=== PATIENT | male | born 1985 | race Caucasian/White ===

== ENCOUNTER 2020-03-21 09:22 | Emergency (ER) | payer SELFPAY ==
[~2020-03-21] VITALS: Ht 182.9 cm; Wt 88.6 kg
[2020-03-21 09:57] LABS: EOS # 0.2 (0.04-0.40); EOS % 1.4 % (0.0-4.0); HEMATOCRIT 47.3 % (42.0-52.0); HEMOGLOBIN 15.6 g/dL (13.5-18.0); LYMPH# 1.6 (1.50-4.00); MEAN CELL VOLUME 92 fl (78-100); MEAN CORPUSCULAR HEMOGLOBIN 31 pg (27-31); MEAN CORPUSCULAR HGB CONC 33 g/dL (33-37); MEAN PLATELET VOLUME 9.3 fl (7.4-10.4); MONO # 1.5 (0.20-0.80); NEU # 9.7 (1.40-6.50); PLATELET COUNT 278 K/mm3 (130-400); RED BLOOD COUNT 5.12 M/mm3 (4.20-5.60); RED CELL DISTRIBUTION WIDTH 14.4 % (11.5-14.5)
[2020-03-21 10:07] LABS: POTASSIUM 4.2 mmol/L (3.5-5.1)
[2020-03-21 10:08] LABS: CALCIUM 9.7 mg/dL (8.3-10.5)
[2020-03-21] MEDS ORDERED: NORCO 325 MG-51 TA1 PO (12:02)
[2020-03-21] MEDS ORDERED: IBU800 M1 PO (12:02)
[2020-03-21] MEDS ORDERED: CLEOCIN HCL300 MG PO (12:02)
[2020-03-21 12:04] VITALS: BP 112/77
== END 2020-03-21 12:12 | disposition home or self-care (01) ==
LOC: ED 09:22
PROVIDERS: Nurse Practitioner Primary Care
DX: K04.7 Periapical abscess without sinus (principal); F17.210 Nicotine dependence, cigarettes, uncomplicated
CPT/HCPCS: J0696; J1885; J2270; J2405; Q9967

== ENCOUNTER 2021-04-08 15:18 | Emergency (ER) | payer SELFPAY ==
[~2021-04-08 15:18] MED LIST: CLEOCIN HCL300 MG PO; IBU800 M1 PO; NORCO 325 MG-51 TA1 PO
[2021-04-08 16:16] LABS: BASO # 0.04 (0.02-0.10); EOS # 0.12 (0.04-0.40); EOS % 1.6 % (0.0-4.0); HEMATOCRIT 42.7 % (42.0-52.0); HEMOGLOBIN 14.3 g/dL (13.5-18.0); MEAN CELL VOLUME 91 fl (78-100); MEAN CORPUSCULAR HEMOGLOBIN 31 pg (27-31); MEAN CORPUSCULAR HGB CONC 34 g/dL (33-37); MEAN PLATELET VOLUME 8.7 fl (7.4-10.4); MONO # 0.81 (0.20-0.80); NEU # 4.44 (1.40-6.50); PLATELET COUNT 261 K/mm3 (130-400); RED BLOOD COUNT 4.67 M/mm3 (4.20-5.60); RED CELL DISTRIBUTION WIDTH 13.9 % (11.5-14.5); WHITE BLOOD COUNT 7.6 K/mm3 (4.8-10.8)
[2021-04-08 16:23] LABS: POTASSIUM 4.4 mmol/L (3.5-5.1); SODIUM 139 mmol/L (136-145)
[2021-04-08 16:24] LABS: CALCIUM 9.1 mg/dL (8.3-10.5)
[2021-04-08 16:25] LABS: GLUCOSE 98 mg/dL (75-110)
[2021-04-08 16:26] LABS: CARBON DIOXIDE 26 mmol/L (22-29)
[2021-04-08 16:37] LABS: TROPONIN-I < 0.03 ng/mL (<0.030)
[2021-04-08 17:42] LABS: D-DIMER 0.57 mg/L FEU (0.15-0.50)
[2021-04-08 18:37] VITALS: BP 134/95
== END 2021-04-08 18:37 | disposition home or self-care (01) ==
LOC: ED 15:18
PROVIDERS: Physician Assistant
DX: J43.9 Emphysema, unspecified (principal); M79.605 Pain in left leg; F17.210 Nicotine dependence, cigarettes, uncomplicated
CPT/HCPCS: Q9967

== ENCOUNTER 2021-07-20 10:27 | Emergency (ER) | payer SELFPAY ==
[2021-07-20 11:10] LABS: BASO # 0.03 K/mm3 (0.02-0.10); EOS # 0.13 K/mm3 (0.04-0.40); EOS % 0.9 % (0.0-4.0); HEMATOCRIT 45.5 % (42.0-52.0); HEMOGLOBIN 15.1 g/dL (13.5-18.0); LYMPH# 2.13 K/mm3 (1.50-4.00); MEAN CELL VOLUME 92 fl (78-100); MEAN CORPUSCULAR HEMOGLOBIN 31 pg (27-31); MEAN CORPUSCULAR HGB CONC 33 g/dL (33-37); MEAN PLATELET VOLUME 8.6 fl (7.4-10.4); MONO # 1.07 K/mm3 (0.20-0.80); NEU # 11.19 K/mm3 (1.40-6.50); PLATELET COUNT 280 K/mm3 (130-400); RED BLOOD COUNT 4.93 M/mm3 (4.20-5.60); RED CELL DISTRIBUTION WIDTH 14.3 % (11.5-14.5); WHITE BLOOD COUNT 14.6 K/mm3 (4.8-10.8)
[2021-07-20 11:18] LABS: ALBUMIN 4.1 g/dL (3.5-5.0)
[2021-07-20 11:19] LABS: POTASSIUM 3.7 mmol/L (3.5-5.1)
[2021-07-20 11:20] LABS: CALCIUM 9.6 mg/dL (8.3-10.5)
[2021-07-20 11:21] LABS: TOTAL PROTEIN 7.1 g/dL (6.4-8.3)
[2021-07-20 11:23] LABS: TOTAL BILIRUBIN 0.5 mg/dL (0.2-1.2)
[2021-07-20 11:25] LABS: URINE APPEARANCE CLOUDY; URINE BILIRUBIN NEGATIVE (NEGATIVE); URINE BLOOD 250 ery/uL (NEGATIVE); URINE COLOR BROWN; URINE GLUCOSE NEGATIVE (NEGATIVE); URINE KETONE NEGATIVE (NEGATIVE); URINE LEUKOCYTE ESTERASE NEGATIVE (NEGATIVE); URINE NITRATE NEGATIVE (NEGATIVE); URINE PROTEIN(semi-quant) 1+ mg/dL (NEGATIVE); URINE UROBILINOGEN NORMAL (NORMAL)
[2021-07-20 11:26] LABS: URINE MUCUS PRESENT (NOT PRESENT)
[2021-07-20 15:06] VITALS: BP 135/86
== END 2021-07-20 14:50 | disposition short-term general hospital (02) ==
LOC: ED 10:27
PROVIDERS: Nurse Practitioner
DX: N13.2 Hydronephrosis with renal and ureteral calculous obstruction (principal); F17.200 Nicotine dependence, unspecified, uncomplicated; Z20.822 Contact with and (suspected) exposure to COVID-19
CPT/HCPCS: J0696; J1885; J2405; J3010; J7030; Q9967